=== PATIENT | female | born 2000 ===

== ENCOUNTER 2021-02-17 09:47 | Inpatient (IN) ==
[2021-02-17] MEDS ORDERED: Dinoprostone 10 MG VAG.SUPP VAGINAL ONE (10:28)
[2021-02-17] MEDS ORDERED: Lactated Ringers 1000 ml BAG 1,000 ML IV ONE ×2 (10:28→23:46)
[2021-02-17] MEDS ORDERED: Buffered Lidocaine 1% SYRIN 1 ml INTRADERM ONE (10:28)
[2021-02-17] MEDS ORDERED: Lactated Ringers 1000 ml BAG 1,000 ML IV SCH ×2 (11:00→23:45)
[2021-02-17 11:51] LABS: Urine Benzodiazepine Screen None Detected (None Detect); Urine Cannabinoids Screen None Detected (None Detect); Urine Opiates Screen None Detected (None Detect)
[2021-02-17] MEDS ORDERED: Promethazine INJ(RESTRICTED) 25 MG/ML 1 ml VIAL IM ONE (21:16)
[2021-02-17] MEDS ORDERED: Morphine 10 MG/ML VIAL (1 ml) IM ONE (21:16)
[2021-02-17] MEDS ORDERED: OBEPIDURAL 250 ML EPIDURAL ONE (22:51)
[2021-02-17 23:02] LABS: ABS Basophils 0.1 10^3/ul (0-0.2); ABS Eosinophils 0.2 10^3/ul (0-0.6); ABS Lymphocytes 2.7 10^3/ul (1.0-4.8); ABS Monocytes 1.3 10^3/ul (0-0.8); ABS Neutrophils 12.4 10^3/ul (1.5-7.7); Eosinophil % 1.1 %; Hematocrit 35 % (35-47); Hemoglobin 11.7 g/dL (12.0-16.0); Lymphocyte % 16.3 %; Mean Corpuscular HGB Conc 34 g/dL (31-36); Mean Corpuscular Hemoglobin 29 pg (27-31); Mean Corpuscular Volume 86 fL (80-97); Platelet Count 129 10^3/uL (150-450); Red Cell Distribution Width 14 % (10-15); White Blood Count 16.7 10^3/uL (3.5-10.8)
[2021-02-17] MEDS ORDERED: OBEPIDURAL 250 ML EPIDURAL SCH (23:45)
[2021-02-17] MEDS ORDERED: Phenylephrine 40 mcg/mL 10mL (400mcg) SYRINGE IV PUSH PRN (23:46)
[2021-02-17] MEDS ORDERED: Sodium Citrate/Citric Acid LIQ 15 ML UDC PO PRN (23:46)
[2021-02-17] MEDS ORDERED: EPHEDrine (Pressors) 50 MG/ML VIAL IV PUSH PRN (23:46)
[2021-02-17] MEDS ORDERED: Lactated Ringers 1000 ml BAG 500 ML IV PRN (23:46)
[2021-02-18 00:35] LABS: Urine Appearance Cloudy; Urine Bilirubin Negative (Negative); Urine Blood 2+ (Negative); Urine Color Yellow; Urine Glucose Negative (Negative); Urine Ketones Negative (Negative); Urine Nitrite Negative (Negative); Urine Protein Negative (Negative); Urine Urobilinogen Negative (Negative)
[2021-02-18 01:05] LABS: Urine Bacteria 1+ (Absent); Urine Red Blood Cell 3+(>10/hpf) (Absent); Urine Squamous Epithelial Cell Present (Absent); Urine White Blood Cell 2+(11-20/hpf) (Absent)
[2021-02-18] MEDS ORDERED: Oxytocin in LR 20 UNITS/1,000 ML BAG IVPB SCH ×2 (13:00→18:00)
[2021-02-18] MEDS ORDERED: fentaNYL 100 mcg/2 ml 50 MCG/ML VIAL ONE (15:36)
[2021-02-18] MEDS ORDERED: Lidocaine 1% VIAL 10 MG/ML VIAL ONE (17:30)
[2021-02-18] MEDS ORDERED: Witch Hazel PAD JAR TOPICAL PRN (17:58)
[2021-02-18] MEDS ORDERED: Glycerin ADULT 2.4 gm SUPP PR PRN (17:58)
[2021-02-18] MEDS ORDERED: Dibucaine 1% OINT 28.35 GM TUBE PR PRN (17:58)
[2021-02-18] MEDS ORDERED: RHO D Immune Globulin (HUMAN) 300 MCG = 1,500 I.U. INJ IM PRN (17:58)
[2021-02-18] MEDS ORDERED: Lactated Ringers 1000 ml BAG 1,000 ML IV SCH (18:00)
[2021-02-19 06:50] LABS: ABS Basophils 0.1 10^3/ul (0-0.2); ABS Eosinophils 0.2 10^3/ul (0-0.6); ABS Lymphocytes 2.4 10^3/ul (1.0-4.8); ABS Monocytes 1.3 10^3/ul (0-0.8); ABS Neutrophils 13.7 10^3/ul (1.5-7.7); Eosinophil % 0.9 %; Hematocrit 27 % (35-47); Hemoglobin 9.1 g/dL (12.0-16.0); Lymphocyte % 13.7 %; Mean Corpuscular HGB Conc 34 g/dL (31-36); Mean Corpuscular Hemoglobin 29 pg (27-31); Mean Corpuscular Volume 86 fL (80-97); Mean Platelet Volume 9.9 fL (7.4-10.4); Platelet Count 113 10^3/uL (150-450); Red Blood Count 3.09 10^6 /uL (3.70-4.87); Red Cell Distribution Width 14 % (10-15); White Blood Count 17.6 10^3/uL (3.5-10.8)
[2021-02-19 12:05] VITALS: BP 126/86
[2021-02-19] MEDS ORDERED: RHO D Immune Globulin (HUMAN) 300 MCG = 1,500 I.U. INJ IM ONE (15:10)
== END 2021-02-19 18:59 | disposition home or self-care (01) | DRG 560 ==
LOC: MCHOBOUT 09:47 → MCHOB 10:29
PROVIDERS: ADMIT Midwife; ATTEND Midwife